=== PATIENT | female | born 1995 | race Caucasian/White ===

== ENCOUNTER 2017-03-07 20:41 | Emergency (ER) | payer SELFPAY ==
[~2017-03-07] VITALS: Ht 170.2 cm; Wt 95.3 kg
[2017-03-07] MEDS ORDERED: MUCINEX D ER T1 EACH PO (21:11)
[2017-03-07] MEDS ORDERED: MOTRIN800 MG PO (21:11)
[2017-03-07 21:25] VITALS: BP 132/99
== END 2017-03-07 21:26 | disposition home or self-care (01) ==
LOC: RME 20:41 → EME 20:41 → RME 21:26
DX: H65.03 Acute serous otitis media, bilateral (principal); H69.83 Other specified disorders of Eustachian tube, bilateral
CPT/HCPCS: 99281; 99284